=== PATIENT | male | born 1995 | race Caucasian/White ===

== ENCOUNTER → 2017-12-07 | Outpatient (CLI) | payer BC | LOC: COL.RAD 08:18 | DX: S43.492A Other sprain of left shoulder joint, initial encounter (principal) | CPT/HCPCS: A9585; Q9967 ==

== ENCOUNTER → 2018-11-24 | Outpatient (CLI) | payer BC, OTHER | LOC: COL.RAD 13:15 | DX: M47.812 Spondylosis without myelopathy or radiculopathy, cervical region (principal); R20.2 Paresthesia of skin | CPT/HCPCS: A9585 ==